=== PATIENT | female | born 1980 | race Caucasian/White ===

== ENCOUNTER 2019-04-08 03:09 | Emergency (ER) | payer OTHER ==
[~2019-04-08] VITALS: Ht 160 cm; Wt 74.8 kg
[~2019-04-08 03:09] MED LIST: AUGMENTIN 875875 MG PO; BACTRIM DS TAB1 EACH PO; CLEOCIN HCL150 MG PO; DOXYCYCLINE 10100 MG PO; FLAGYL500 M1 PO; KEFLEX500 MG PO; MEDROLDOSEPACK PO; NORCO 5-325 TA1 EACH PO; PENICILLIN VK250 MG PO; PERCOCET 5-3251 EACH PO; PERCOCET 7.5-31 EACH PO; PRENATAL PO; PROZAC 20 MG20 M1; PROZAC 20 MG20 MG PO; SEROQUEL; VISTARIL 25 MG25 M1 PO; ZPAK PO; [UNRECOGNIZED DRUG - OTHER]
[2019-04-08] MEDS ORDERED: MEDROLDOSEPACK PO (03:29)
[2019-04-08 03:44] VITALS: BP 150/90
== END 2019-04-08 03:45 | disposition home or self-care (01) ==
LOC: M.ERS 03:09
DX: L25.9 Unspecified contact dermatitis, unspecified cause (principal); F31.9 Bipolar disorder, unspecified